=== PATIENT | female | born 1970 | race Caucasian/White ===

== ENCOUNTER → 2019-06-01 | Outpatient (CLI) | payer OTHER ==
--- NOTE | 2019-06-01 15:00 | MRI ---
EXAM DESCRIPTION: Brain w/wo Contrast: Magnetic Resonance Imaging. CLINICAL HISTORY: 48 years Female IRIDOCYCLITIS COMPARISON: None. TECHNIQUE: Multiplanar, high-field MRI, multiple conventional sequences, without and with gadolinium IV contrast. No adverse reactions. Multiple axial diffusion sequences. FINDINGS: At least 3 punctate hyperintense FLAIR and T2-weighted signal in the subcortical white matter of the right frontal lobe at the level of the right frontal horn of the lateral ventricle. No hemorrhage, no mass effect, no abnormal enhancement. Normal signal in the bilateral basal ganglia. No hemorrhage, no cerebral edema, no mass-effect. Normal contrast enhancement. Normal signal in the brainstem and cerebellar hemispheres. No hemorrhage, no cerebral edema, no mass-effect. Normal contrast enhancement. Concordance of the diffusion and non-diffusion sequences with no evidence of acute or subacute infarction. Cortical sulci, ventricles, and other CSF spaces, and the subdural spaces are normally configured. No effacement or displacement. No midline shift. No extra-axial hemorrhage. Normal contrast enhancement. Normal flow signal void in the major vessels of the [place], and the venous sinuses. IACs are symmetric bilaterally. Normal signal in the bilateral mastoid air cells. No mass effect in the Cerebellopontine angles. Normal contrast enhancement. Pituitary gland occupies most of the sella. Normal contrast enhancement. Base of the cerebellar tonsils is at the level of the foramen magnum. Mucoperiosteal thickening in the paranasal sinuses. The bony calvarium is intact. Artifact on some sequences partially obscuring the anterior optic globes, in the vicinity of the cornea and lenses. No mass effect in the orbits. No abnormal enhancement or fluid collections in the orbits. IMPRESSION: 1. Small foci of white matter abnormal signal subcortical right frontal lobe. No hemorrhage, no mass effect, no diffusion restriction, no abnormal contrast enhancement Could be related to focal microvascular disease, vasculitis, prior trauma, or migraine headaches. 2. Limited position of the orbits showing no abnormal fluid and no mass effect in the orbits. Magnetic distortion on some sequences of the anterior globes in the vicinity of the lenses and cornea, of unknown etiology. Electronically signed by: Holger Meyer MD 06/01/2019 2:59 PM [employer]
== END ==
LOC: MRI 06:47
PROVIDERS: ATTEND Nurse Practitioner Family
DX: H20.9 Unspecified iridocyclitis (principal)